=== PATIENT | male | born 1990 | race Caucasian/White ===

== ENCOUNTER 2021-08-12 19:43 | Emergency (ER) | payer BC ==
[2021-08-12] MEDS ORDERED: HYDROmorphone 1 MG/ML Syringe IVPUSH ONE ×3 (19:48→21:36)
[2021-08-12] MEDS ORDERED: Ondansetron 4 MG/2 ML SDV IVPUSH ONE (19:48)
[2021-08-12] MEDS ORDERED: Sodium Chloride 0.9% 1,000 ML IV SCH (20:00)
== END 2021-08-13 00:30 | disposition home or self-care (01) ==
LOC: JD.ED 19:43
DX: S82.392A Other fracture of lower end of left tibia, initial encounter for closed fracture (principal); S82.832A Other fracture of upper and lower end of left fibula, initial encounter for closed fracture; Z20.822 Contact with and (suspected) exposure to COVID-19; V80.010A Animal-rider injured by fall from or being thrown from horse in noncollision accident, initial encounter; Y93.52 Activity, horseback riding
CPT/HCPCS: 29515; 73560; 73590; 73610; 73620; 87635; 96361; 96374; 96375; 96376; 99284; J1170; J2405; J7030; 29505; 73564-26-LT; 73630-26-LT; 73630-LT; U0002